=== PATIENT | male | born 1935 | race Caucasian/White ===

== ENCOUNTER 2018-08-23 20:56 | Inpatient (IN) | payer BC ==
[2018-08-23] MEDS ORDERED: ONDANSETRON 4 MG TAB PO (22:30)
[2018-08-23] MEDS ORDERED: ALBUTEROL 0.083% (NEB) 2.5 MG/3 ML AMP NEB (22:30)
[2018-08-23] MEDS ORDERED: INSULIN GLARGINE [LANTus] (100 UNITS/ML) SYG SC (22:30)
[2018-08-23] MEDS ORDERED: FUROSEMIDE (8 MG/ML PO SYG) PO (22:30)
[2018-08-23] MEDS ORDERED: GLUCOSE GEL 15 GRAM TUBE PO ×2 (23:00)
[2018-08-23] MEDS ORDERED: GLUCAGON 1 MG INJ IM (23:00)
[2018-08-23] MEDS ORDERED: DEXTROSE 50% 50 ML SYRINGE IV ×2 (23:00)
[2018-08-23] MEDS ORDERED: GLUCOSE GEL 15 GRAM TUBE BUCCAL (23:00)
[2018-08-23] MEDS: FUROSEMIDE 20 MG TAB PO (23:36)
[2018-08-23] MEDS: BUDESONIDE (NEB) 0.5MG/2ML AMP NEB (23:48)
[2018-08-24] MEDS: INSULIN ASPART [NOVOLOG] 3 ML PEN SC ×7 (00:15→21:11)
[2018-08-24] MEDS: INSULIN GLARGINE [LANTus] (100 UNITS/ML) SYG SC ×3 (00:21→21:11)
[2018-08-24] MEDS ORDERED: CALCIUM CARBONATE 500 MG CHEW TAB PO ×2 (01:00→02:00)
[2018-08-24] MEDS: IPRATROPIUM (NEB) 0.5 MG/2.5 ML AMP HHN ×6 (01:23→20:05)
[2018-08-24] MEDS: ALBUTEROL 0.083% (NEB) 2.5 MG/3 ML AMP HHN ×6 (01:24→20:05)
[2018-08-24 05:28] LABS: ADD MAN DIFF? NO
[2018-08-24 05:35] LABS: WHITE BLOOD COUNT 12.2 10^3/ul (4.8-10.8)
[2018-08-24 05:35] LABS: BASOPHILS % 0.2 % (0.0-2.0); EOSINOPHILS # 0.2 10^3/ul (0.0-0.5); EOSINOPHILS % 1.5 % (0.0-7.0); HEMATOCRIT 42.8 % (42.0-52.0); HEMOGLOBIN 13.9 g/dl (14.0-18.0); LYMPHOCYTES # 3.8 10^3/ul (0.8-2.9); LYMPHOCYTES % 30.7 % (15.0-51.0); MEAN CORPUSCULAR HEMOGLOBIN 29.6 pg (29.0-33.0); MEAN CORPUSCULAR HGB CONC 32.5 g/dl (32.0-37.0); MEAN CORPUSCULAR VOLUME 91.3 fl (82.0-101.0); MEAN PLATELET VOLUME 11.2 fl (7.4-10.4); MONOCYTE # 1.5 10^3/ul (0.3-0.9); MONOCYTES % 12.2 % (0.0-11.0); NEUTROPHIL # 6.7 10^3/ul (1.6-7.5); NEUTROPHILS % 55.1 % (39.0-77.0); PLATELET COUNT 273 10^3/UL (140-415); RED BLOOD COUNT 4.69 10^6/ul (4.70-6.10); RED CELL DISTRIBUTION WIDTH 13.3 % (11.5-14.5)
[2018-08-24 06:07] LABS: BLOOD UREA NITROGEN 36 mg/dl (7-20); CALCIUM 8.9 mg/dl (8.4-10.2); CHLORIDE 84 mmol/L (97-110); CREATININE 1.11 mg/dl (0.61-1.24); GLUCOSE 139 mg/dl (70-220); POTASSIUM 3.4 mmol/L (3.5-5.1); SODIUM 135 mmol/L (135-144)
[2018-08-24] MEDS: PANTOPRAZOLE (EC) 40 MG TAB PO (06:13)
[2018-08-24 06:20] LABS: ANION GAP 8 (5-13); CARBON DIOXIDE 43 mmol/L (21-31)
[2018-08-24] MEDS ORDERED: INSULIN ASPART [NOVOLOG] 3 ML PEN SC (08:00)
[2018-08-24] MEDS: DILTIAZEM (CD) 120 MG CAP PO (08:14)
[2018-08-24] MEDS: POTASSIUM CHLORIDE (SR) 20 MEQ TAB PO (08:14)
[2018-08-24] MEDS: predniSONE 20 MG TAB PO (08:15)
[2018-08-24] MEDS: ASPIRIN 81 MG TAB PO (08:15)
[2018-08-24] MEDS: FUROSEMIDE 20 MG TAB PO ×2 (08:15→21:00)
[2018-08-24] MEDS: AMLODIPINE 10 MG TAB PO (08:15)
[2018-08-24] MEDS: CEFTRIAXONE 1 GM/50 ML (PMX) 50 ML IVPB (08:15)
[2018-08-24] MEDS: ENOXAPARIN 40 MG/0.4 ML SYG SC (08:22)
[2018-08-24] MEDS: BUDESONIDE (NEB) 0.5MG/2ML AMP NEB ×2 (08:33→20:06)
[2018-08-24] MEDS: ACETAZOLAMIDE 500 MG INJ IV (09:40)
[2018-08-24] MEDS: AZITHROMYCIN 500 MG in SOD CHLORIDE 0.9% 250 ML IVPB (15:57)
[2018-08-24] MEDS: ARTIFICIAL TEARS 15 ML OPH BOTH EYES ×2 (15:58→20:59)
[2018-08-24 17:56] LABS: AADO2 Arterial 51.9 mmHg (7.0-24.0); Allen Test ACCEPTAB; Arterial Base Excess 9.5 mmol/L (-3.0-3); Arterial Blood Gas Oxygen Sat 94.3 mmHG (95.0-100.0); Arterial COHb 0.4 % (0.0-3.0); Arterial Fraction of Oxyhgb 93.5 % (93.0-99.0); Arterial HCO3 37.3 mmol/L (22.0-26.0); Arterial MetHb 0.5 % (0.0-1.5); Arterial pCO2 63.7 mmhg (35-45); MODE NASAL CANNULA; Site Right Radial
[2018-08-24 18:08] LABS: GLUCOSE 434 mg/dl (70-220)
[2018-08-24] MEDS: ATORVASTATIN 80 MG TAB PO (20:59)
[2018-08-25] MEDS: ALBUTEROL 0.083% (NEB) 2.5 MG/3 ML AMP HHN ×6 (01:20→20:41)
[2018-08-25] MEDS: IPRATROPIUM (NEB) 0.5 MG/2.5 ML AMP HHN ×6 (01:21→20:40)
[2018-08-25] MEDS: PANTOPRAZOLE (EC) 40 MG TAB PO (06:17)
[2018-08-25] MEDS: INSULIN ASPART [NOVOLOG] 3 ML PEN SC ×7 (08:04→21:03)
[2018-08-25] MEDS: INSULIN GLARGINE [LANTus] (100 UNITS/ML) SYG SC ×2 (08:04→20:56)
[2018-08-25] MEDS: ACETAZOLAMIDE 500 MG INJ IV (08:58)
[2018-08-25] MEDS: CEFTRIAXONE 1 GM/50 ML (PMX) 50 ML IVPB (08:58)
[2018-08-25] MEDS: ASPIRIN 81 MG TAB PO (08:58)
[2018-08-25] MEDS: AMLODIPINE 10 MG TAB PO (08:58)
[2018-08-25] MEDS: predniSONE 20 MG TAB PO (08:59)
[2018-08-25] MEDS: FUROSEMIDE 20 MG TAB PO (08:59)
[2018-08-25] MEDS: ARTIFICIAL TEARS 15 ML OPH BOTH EYES ×4 (09:00→20:46)
[2018-08-25 09:02] LABS: ANION GAP 11 (5-13); BLOOD UREA NITROGEN 34 mg/dl (7-20); CALCIUM 9.2 mg/dl (8.4-10.2); CARBON DIOXIDE 38 mmol/L (21-31); CHLORIDE 83 mmol/L (97-110); GLUCOSE 177 mg/dl (70-220); POTASSIUM 3.5 mmol/L (3.5-5.1); SODIUM 132 mmol/L (135-144)
[2018-08-25] MEDS: ENOXAPARIN 40 MG/0.4 ML SYG SC (09:14)
[2018-08-25] MEDS: BUDESONIDE (NEB) 0.5MG/2ML AMP NEB ×2 (09:28→20:42)
[2018-08-25] MEDS: AZITHROMYCIN 500 MG in SOD CHLORIDE 0.9% 250 ML IVPB (10:27)
[2018-08-25] MEDS: DILTIAZEM (CD) 120 MG CAP PO (10:28)
[2018-08-25] MEDS: ACETAMINOPHEN 325 MG TAB PO (10:28)
[2018-08-25] MEDS: POTASSIUM CHLORIDE (SR) 10 MEQ TAB PO (12:36)
[2018-08-25] MEDS: FUROSEMIDE 40 MG INJ IV (12:37)
[2018-08-25 19:07] LABS: CREATINE KINASE 57 IU/L (23-200)
[2018-08-25 19:20] LABS: CK INDEX 3.8; CK-MB 2.15 ng/ml (0.0-2.4); TROPONIN-I < 0.012 ng/ml (0.000-0.120)
[2018-08-25] MEDS: ATORVASTATIN 80 MG TAB PO (20:46)
[2018-08-25] MEDS: DOCUSATE SODIUM 100 MG CAP PO (20:46)
[2018-08-26 01:01] LABS: CREATINE KINASE 59 IU/L (23-200)
[2018-08-26 01:13] LABS: CK INDEX 3.6; CK-MB 2.14 ng/ml (0.0-2.4); TROPONIN-I < 0.012 ng/ml (0.000-0.120)
[2018-08-26] MEDS: IPRATROPIUM (NEB) 0.5 MG/2.5 ML AMP HHN ×6 (01:34→20:51)
[2018-08-26] MEDS: ALBUTEROL 0.083% (NEB) 2.5 MG/3 ML AMP HHN ×6 (01:34→20:51)
[2018-08-26] MEDS: PANTOPRAZOLE (EC) 40 MG TAB PO (05:57)
[2018-08-26 06:18] LABS: ADD MAN DIFF? NO
[2018-08-26 06:29] LABS: BASOPHILS % 0.2 % (0.0-2.0); EOSINOPHILS # 0.1 10^3/ul (0.0-0.5); EOSINOPHILS % 0.5 % (0.0-7.0); HEMATOCRIT 42.8 % (42.0-52.0); LYMPHOCYTES # 2.8 10^3/ul (0.8-2.9); LYMPHOCYTES % 20.7 % (15.0-51.0); MEAN CORPUSCULAR HEMOGLOBIN 29.4 pg (29.0-33.0); MEAN CORPUSCULAR HGB CONC 32.7 g/dl (32.0-37.0); MEAN CORPUSCULAR VOLUME 89.9 fl (82.0-101.0); MEAN PLATELET VOLUME 11.5 fl (7.4-10.4); MONOCYTES % 7.4 % (0.0-11.0); NEUTROPHIL # 9.5 10^3/ul (1.6-7.5); NEUTROPHILS % 70.9 % (39.0-77.0); PLATELET COUNT 284 10^3/UL (140-415); RED BLOOD COUNT 4.76 10^6/ul (4.70-6.10); RED CELL DISTRIBUTION WIDTH 13.5 % (11.5-14.5)
[2018-08-26 06:29] LABS: WHITE BLOOD COUNT 13.3 10^3/ul (4.8-10.8)
[2018-08-26 06:56] LABS: ANION GAP 10 (5-13); BLOOD UREA NITROGEN 37 mg/dl (7-20); CALCIUM 9.3 mg/dl (8.4-10.2); CARBON DIOXIDE 32 mmol/L (21-31); CHLORIDE 91 mmol/L (97-110); CREATININE 1.42 mg/dl (0.61-1.24); GLUCOSE 188 mg/dl (70-220); POTASSIUM 3.6 mmol/L (3.5-5.1); SODIUM 133 mmol/L (135-144)
[2018-08-26 06:58] LABS: MAGNESIUM 2.2 mg/dl (1.7-2.5)
[2018-08-26 06:58] LABS: PHOSPHORUS 4.7 mg/dl (2.5-4.9)
[2018-08-26] MEDS: CEFTRIAXONE 1 GM/50 ML (PMX) 50 ML IVPB (07:18)
[2018-08-26 07:33] LABS: HDL CHOLESTEROL 48 mg/dl (31-75); LDL CHOLESTEROL,CALCULATED 41 mg/dl; TRIGLYCERIDES 53 mg/dl (0-149)
[2018-08-26 07:33] LABS: CHOLESTEROL 100 mg/dl (100-200)
[2018-08-26] MEDS: INSULIN ASPART [NOVOLOG] 3 ML PEN SC ×7 (07:54→22:06)
[2018-08-26] MEDS: INSULIN GLARGINE [LANTus] (100 UNITS/ML) SYG SC ×2 (07:55→22:06)
[2018-08-26] MEDS: ARTIFICIAL TEARS 15 ML OPH BOTH EYES ×4 (08:12→21:52)
[2018-08-26] MEDS: FUROSEMIDE 40 MG INJ IV (08:12)
[2018-08-26] MEDS: predniSONE 20 MG TAB PO (08:13)
[2018-08-26] MEDS: DOCUSATE SODIUM 100 MG CAP PO ×2 (08:13→21:52)
[2018-08-26] MEDS: ACETAZOLAMIDE 500 MG INJ IV (08:13)
[2018-08-26] MEDS: ASPIRIN 81 MG TAB PO (08:13)
[2018-08-26] MEDS: AMLODIPINE 10 MG TAB PO (08:13)
[2018-08-26] MEDS: POTASSIUM CHLORIDE (SR) 10 MEQ TAB PO (08:13)
[2018-08-26] MEDS: AZITHROMYCIN 500 MG in SOD CHLORIDE 0.9% 250 ML IVPB (08:13)
[2018-08-26] MEDS: ENOXAPARIN 40 MG/0.4 ML SYG SC (08:26)
[2018-08-26] MEDS: BUDESONIDE (NEB) 0.5MG/2ML AMP NEB ×2 (10:59→20:55)
[2018-08-26] MEDS: ATORVASTATIN 80 MG TAB PO (21:52)
[2018-08-27] MEDS: ALBUTEROL 0.083% (NEB) 2.5 MG/3 ML AMP HHN ×6 (00:12→21:19)
[2018-08-27] MEDS: IPRATROPIUM (NEB) 0.5 MG/2.5 ML AMP HHN ×6 (00:12→21:19)
[2018-08-27 05:40] LABS: ADD MAN DIFF? NO
[2018-08-27 05:42] LABS: WHITE BLOOD COUNT 13.3 10^3/ul (4.8-10.8)
[2018-08-27 05:42] LABS: BASOPHILS % 0.2 % (0.0-2.0); EOSINOPHILS # 0.2 10^3/ul (0.0-0.5); EOSINOPHILS % 1.1 % (0.0-7.0); HEMATOCRIT 42.3 % (42.0-52.0); HEMOGLOBIN 13.7 g/dl (14.0-18.0); LYMPHOCYTES # 3.3 10^3/ul (0.8-2.9); LYMPHOCYTES % 24.5 % (15.0-51.0); MEAN CORPUSCULAR HEMOGLOBIN 29.7 pg (29.0-33.0); MEAN CORPUSCULAR HGB CONC 32.4 g/dl (32.0-37.0); MEAN CORPUSCULAR VOLUME 91.6 fl (82.0-101.0); MEAN PLATELET VOLUME 11.3 fl (7.4-10.4); MONOCYTE # 1.3 10^3/ul (0.3-0.9); MONOCYTES % 9.7 % (0.0-11.0); NEUTROPHIL # 8.5 10^3/ul (1.6-7.5); PLATELET COUNT 252 10^3/UL (140-415); RED BLOOD COUNT 4.62 10^6/ul (4.70-6.10); RED CELL DISTRIBUTION WIDTH 13.6 % (11.5-14.5)
[2018-08-27] MEDS: PANTOPRAZOLE (EC) 40 MG TAB PO (05:52)
[2018-08-27 06:05] LABS: PHOSPHORUS 4.9 mg/dl (2.5-4.9)
[2018-08-27 06:05] LABS: MAGNESIUM 2.4 mg/dl (1.7-2.5)
[2018-08-27 06:07] LABS: ANION GAP 12 (5-13); BLOOD UREA NITROGEN 40 mg/dl (7-20); CALCIUM 9.3 mg/dl (8.4-10.2); CARBON DIOXIDE 30 mmol/L (21-31); CHLORIDE 94 mmol/L (97-110); CREATININE 1.41 mg/dl (0.61-1.24); GLUCOSE 164 mg/dl (70-220); POTASSIUM 3.5 mmol/L (3.5-5.1); SODIUM 136 mmol/L (135-144)
[2018-08-27] MEDS: INSULIN ASPART [NOVOLOG] 3 ML PEN SC ×7 (07:45→20:48)
[2018-08-27] MEDS: CEFTRIAXONE 1 GM/50 ML (PMX) 50 ML IVPB (07:55)
[2018-08-27] MEDS: ENOXAPARIN 40 MG/0.4 ML SYG SC (08:02)
[2018-08-27] MEDS: INSULIN GLARGINE [LANTus] (100 UNITS/ML) SYG SC ×2 (08:02→20:49)
[2018-08-27] MEDS: FUROSEMIDE 40 MG INJ IV ×2 (09:00→17:35)
[2018-08-27] MEDS: AMLODIPINE 10 MG TAB PO (09:00)
[2018-08-27] MEDS: BUDESONIDE (NEB) 0.5MG/2ML AMP NEB ×2 (09:06→21:20)
[2018-08-27] MEDS: AZITHROMYCIN 500MG/NS (PMX) 250 ML IVPB (09:26)
[2018-08-27] MEDS: ARTIFICIAL TEARS 15 ML OPH BOTH EYES ×4 (09:28→20:06)
[2018-08-27] MEDS: ASPIRIN 81 MG TAB PO (09:28)
[2018-08-27] MEDS: POTASSIUM CHLORIDE (SR) 10 MEQ TAB PO (09:28)
[2018-08-27] MEDS: predniSONE 20 MG TAB PO (09:28)
[2018-08-27] MEDS: DOCUSATE SODIUM 100 MG CAP PO ×2 (09:28→20:05)
[2018-08-27] MEDS: ATORVASTATIN 80 MG TAB PO (20:05)
[2018-08-28] MEDS: IPRATROPIUM (NEB) 0.5 MG/2.5 ML AMP HHN ×5 (00:32→17:00)
[2018-08-28] MEDS: ALBUTEROL 0.083% (NEB) 2.5 MG/3 ML AMP HHN ×5 (00:32→17:00)
[2018-08-28] MEDS: PANTOPRAZOLE (EC) 40 MG TAB PO (05:35)
[2018-08-28 05:55] LABS: ADD MAN DIFF? NO
[2018-08-28 06:06] LABS: BASOPHILS % 0.2 % (0.0-2.0); EOSINOPHILS # 0.4 10^3/ul (0.0-0.5); EOSINOPHILS % 2.6 % (0.0-7.0); HEMATOCRIT 46.5 % (42.0-52.0); HEMOGLOBIN 14.9 g/dl (14.0-18.0); LYMPHOCYTES # 4.4 10^3/ul (0.8-2.9); LYMPHOCYTES % 28.1 % (15.0-51.0); MEAN CORPUSCULAR HEMOGLOBIN 29.2 pg (29.0-33.0); MEAN PLATELET VOLUME 11.5 fl (7.4-10.4); MONOCYTE # 1.3 10^3/ul (0.3-0.9); MONOCYTES % 8.6 % (0.0-11.0); NEUTROPHIL # 9.4 10^3/ul (1.6-7.5); NEUTROPHILS % 60.2 % (39.0-77.0); PLATELET COUNT 289 10^3/UL (140-415); RED BLOOD COUNT 5.11 10^6/ul (4.70-6.10); RED CELL DISTRIBUTION WIDTH 13.6 % (11.5-14.5)
[2018-08-28 06:06] LABS: WHITE BLOOD COUNT 15.6 10^3/ul (4.8-10.8)
[2018-08-28 06:35] LABS: ANION GAP 11 (5-13); BLOOD UREA NITROGEN 40 mg/dl (7-20); CALCIUM 9.7 mg/dl (8.4-10.2); CARBON DIOXIDE 32 mmol/L (21-31); CHLORIDE 95 mmol/L (97-110); GLUCOSE 118 mg/dl (70-220); POTASSIUM 3.9 mmol/L (3.5-5.1); SODIUM 138 mmol/L (135-144)
[2018-08-28] MEDS: INSULIN ASPART [NOVOLOG] 3 ML PEN SC ×6 (07:51→17:35)
[2018-08-28] MEDS: CEFTRIAXONE 1 GM/50 ML (PMX) 50 ML IVPB (07:51)
[2018-08-28] MEDS: INSULIN GLARGINE [LANTus] (100 UNITS/ML) SYG SC (07:55)
[2018-08-28] MEDS: predniSONE 20 MG TAB PO (08:48)
[2018-08-28] MEDS: ASPIRIN 81 MG TAB PO (08:48)
[2018-08-28] MEDS: POTASSIUM CHLORIDE (SR) 10 MEQ TAB PO (08:48)
[2018-08-28] MEDS: DOCUSATE SODIUM 100 MG CAP PO (08:48)
[2018-08-28] MEDS: AMLODIPINE 10 MG TAB PO (08:49)
[2018-08-28] MEDS: ARTIFICIAL TEARS 15 ML OPH BOTH EYES ×3 (08:49→17:00)
[2018-08-28] MEDS: AZITHROMYCIN 500MG/NS (PMX) 250 ML IVPB (08:49)
[2018-08-28] MEDS: FUROSEMIDE 40 MG INJ IV (08:49)
[2018-08-28] MEDS: ENOXAPARIN 40 MG/0.4 ML SYG SC (08:58)
[2018-08-28] MEDS: BUDESONIDE (NEB) 0.5MG/2ML AMP NEB (09:50)
[2018-08-28] MEDS: MAGNESIUM CITRATE 300 ML BTL PO (15:50)
[2018-08-28] MEDS: INFLUENZA VIRUS VACCINE 0.5 ML (DISPENSING) IM* (15:51)
== END 2018-08-28 19:01 | DRG 193 ==
LOC: 6WM 20:56
PROVIDERS: Internal Medicine Nephrology
DX: J18.9 Pneumonia, unspecified organism (principal); I50.33 Acute on chronic diastolic (congestive) heart failure; J96.22 Acute and chronic respiratory failure with hypercapnia; J96.21 Acute and chronic respiratory failure with hypoxia; I13.0 Hypertensive heart and chronic kidney disease with heart failure and stage 1 through stage 4 chronic kidney disease, or unspecified chronic kidney disease; J44.0 Chronic obstructive pulmonary disease with (acute) lower respiratory infection; Z68.41 Body mass index [BMI] 40.0-44.9, adult; N17.9 Acute kidney failure, unspecified; J44.1 Chronic obstructive pulmonary disease with (acute) exacerbation; E87.3 Alkalosis; E78.5 Hyperlipidemia, unspecified; G47.30 Sleep apnea, unspecified; E66.9 Obesity, unspecified; E11.65 Type 2 diabetes mellitus with hyperglycemia; N18.9 Chronic kidney disease, unspecified; Z86.73 Personal history of transient ischemic attack (TIA), and cerebral infarction without residual deficits; Z71.3 Dietary counseling and surveillance; Z79.01 Long term (current) use of anticoagulants; Z79.82 Long term (current) use of aspirin; Z79.4 Long term (current) use of insulin
CPT/HCPCS: 36600; 71045; 80048; 80061; 82550; 82553; 82803; 82947; 82962; 83735; 84100; 84484; 85025; 87081; 90686; 93005; 93306; 94640; 94664; 97161